=== PATIENT | female | born 2005 | race Caucasian/White ===

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

== ENCOUNTER → 2024-04-11 10:45 | Outpatient (BNVA) | payer SELFPAY ==
[2022-07-31 10:11] VITALS: BP 122/76; BMI 35.6
== END ==
PROVIDERS: PCP Pediatrics Adolescent Medicine; Visit Provider Emergency Medicine
DX: R05.9 Cough, unspecified (principal); J10.1 Influenza due to other identified influenza virus with other respiratory manifestations
CPT/HCPCS: 87400